=== PATIENT | male | born 1965 | race African-American/Black ===

== ENCOUNTER → 2017-12-11 | Outpatient (CLI) | payer OTHER | END | disposition home or self-care (01) | LOC: KCIC 13:09 | DX: M16.11 Unilateral primary osteoarthritis, right hip (principal); M77.8 Other enthesopathies, not elsewhere classified; M85.651 Other cyst of bone, right thigh; Z91.81 History of falling | CPT/HCPCS: 73502 ==

== ENCOUNTER → 2019-08-01 | Outpatient (CLI) | payer OTHER, MEDICAID ==
[2016-07-25 17:35] VITALS: BP 160/94
--- NOTE | 2019-08-01 12:22 | KCIC ---
EXAM: CHEST 2 VIEWS. HISTORY: Increasing shortness of breath. COMPARISON: 04/10/2015. FINDINGS: Frontal and lateral views of the chest are obtained. A 7 mm nodule in the left base may represent a nipple shadow but this is unclear. There are no confluent infiltrates. There is no pneumothorax or pleural effusion. The heart is not enlarged. IMPRESSION: 1. A 7 mm left basilar nodule may be a nipple shadow. A repeat with nipple markers could further exclude a parenchymal nodule versus follow-up. 2. No confluent infiltrates. Electronically signed by: Luzma Rodriguez MD (08/01/2019 12:18 PM) [facility]
== END | disposition home or self-care (01) ==
LOC: KCIC 11:39
PROVIDERS: ATTEND Family Medicine
DX: R06.02 Shortness of breath (principal)
CPT/HCPCS: 71046

== ENCOUNTER → 2019-08-05 | Outpatient (CLI) | payer OTHER, MEDICAID ==
[2016-07-25 17:35] VITALS: BP 160/94
--- NOTE | 2019-08-05 15:22 | KCIC ---
EXAM: Chest, 2 views. HISTORY: Pulmonary nodule follow-up. Cough. COMPARISON: 08/01/2019 FINDINGS: 2 views of the chest are obtained. There is no infiltrate, pleural effusion or pneumothorax. The heart is normal in size. There is cervical spinal fusion instrumentation, partially included on the [id number]. IMPRESSION: No acute pulmonary finding. The previously demonstrated nodular opacity at the left lung base is not seen. Electronically signed by: Lazara Yepez MD (08/05/2019 3:19 PM) [place] [id number]
== END | disposition home or self-care (01) ==
LOC: KCIC 10:35
PROVIDERS: ATTEND Family Medicine
DX: R91.1 Solitary pulmonary nodule (principal); R06.02 Shortness of breath
CPT/HCPCS: 71046

== ENCOUNTER 2021-01-15 02:24 | Emergency (ER) | payer OTHER, MEDICAID ==
[~2021-01-15] VITALS: Ht 172.7 cm; Wt 82.7 kg
[2021-01-15] MEDS ORDERED: AZIT250T PO (02:59)
[2021-01-15] MEDS ORDERED: BENZ100C PO (02:59)
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
[2021-01-15 03:10] VITALS: BP 124/78
== END 2021-01-15 03:10 | disposition home or self-care (01) ==
LOC: ER 02:24
DX: J02.9 Acute pharyngitis, unspecified (principal); R68.2 Dry mouth, unspecified; R05 Cough; F17.200 Nicotine dependence, unspecified, uncomplicated; F25.9 Schizoaffective disorder, unspecified
CPT/HCPCS: 99284

== ENCOUNTER 2021-10-28 06:39 | Emergency (ER) | payer OTHER, MEDICAID ==
[~2021-10-28] VITALS: Ht 172.7 cm; Wt 79.5 kg
[~2021-10-28 06:39] MED LIST: AZIT250T PO; BENZ100C PO
[2021-10-28 09:00] VITALS: BP 114/83
[2021-10-28] MEDS ORDERED: LIDOCAINE 1% Multi-Dose 20 ML VIAL. INJ ONE (09:15)
[2021-10-28] MEDS ORDERED: HYDROcodone/APAP 5/325MG 1 TAB TABLET PO ONE (09:15)
[2021-10-28] MEDS ORDERED: DIPHTH,PERTUSS(ACELL),TET TOX 0.5 ML DISP.SYRIN. VAX IM ONE (10:00)
[2021-10-28] MEDS ORDERED: CEPH500T PO (11:01)
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
[2021-10-28] MEDS ORDERED: NEOMY/BACITR/POLYMYXIN OINT PACKET. TP ONE (11:15)
== END 2021-10-28 11:22 | disposition home or self-care (01) ==
LOC: ER 06:39
DX: S91.312A Laceration without foreign body, left foot, initial encounter (principal); M19.90 Unspecified osteoarthritis, unspecified site; F17.200 Nicotine dependence, unspecified, uncomplicated; W26.8XXA Contact with other sharp object(s), not elsewhere classified, initial encounter; Y93.89 Activity, other specified; Y92.89 Other specified places as the place of occurrence of the external cause; Y99.8 Other external cause status
CPT/HCPCS: 12002; 90471; 90715; 99284; J3490

== ENCOUNTER 2021-12-11 03:38 | Emergency (ER) | payer OTHER, MEDICAID ==
[~2021-12-11] VITALS: Ht 172.7 cm; Wt 81.8 kg
[~2021-12-11 03:38] MED LIST changes: +CEPH500T PO
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
--- NOTE | 2021-12-11 05:05 | RAD ---
EXAM: XR CHEST 1V 12/11/2021 4:18 AM CLINICAL INDICATION: Overdose COMPARISON: Chest radiograph 08/05/2019 TECHNIQUE: AP view of the chest FINDINGS: The heart is normal in size. Lungs are hypoexpanded. There is mild scattered bilateral int erstitial opacities. No pleural effusion or pneumothorax. IMPRESSION: Hypoexpanded lungs with mild scattered interstitial opacities, possibly atelectasis. Electronically signed by: Tamra Crain MD (12/11/2021 5:03 AM) [facility]
[2021-12-11 05:16] LABS: BASO % 1 % (0-3); EOS # 0.1 x10^3/uL (0.0-0.7); EOS % 3 % (0-3); HEMATOCRIT 43.7 % (39.0-53.0); HEMOGLOBIN 14.1 g/dL (13.0-17.5); LYMPH % 36 % (24-48); MEAN CORPUSCULAR HEMOGLOBIN 28 pg (25-35); MEAN CORPUSCULAR HGB CONC 32 g/dL (31-37); MEAN CORPUSCULAR VOLUME 88 fL (79-100); MONO # 0.5 x10^3/uL (0.0-1.1); MONO % 9 % (0-9); NEUT # 2.8 x10^3/uL (1.8-7.7); NEUT % 52 % (31-73); PLATELET COUNT 181 x10^3/uL (140-400); RED CELL DISTRIBUTION WIDTH 14.7 % (11.5-14.5); WHITE BLOOD COUNT 5.5 x10^3/uL (4.0-11.0)
[2021-12-11 05:25] LABS: CALCIUM 7.6 mg/dL (8.5-10.1); CREATININE 1.1 mg/dL (0.7-1.3); GFR 83.5; POTASSIUM 3.8 mmol/L (3.5-5.1)
[2021-12-11 05:30] LABS: ALBUMIN 3.7 g/dL (3.4-5.0); ALBUMIN/GLOBULIN RATIO 1.2 (1.0-1.7); TOTAL BILIRUBIN 0.2 mg/dL (0.2-1.0); TOTAL PROTEIN 6.9 g/dL (6.4-8.2)
[2021-12-11 05:34] LABS: ACETAMIN < 2 mcg/ml (10-30); ETHANOL < 10 mg/dL (0-10)
--- NOTE | 2021-12-11 05:53 | EKG ---
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
[2021-12-11] MEDS ORDERED: IV NORMAL SALINE 1000ML BAG 1,000 ML IV ONE ×2 (06:00)
[2021-12-11 11:42] VITALS: BP 100/70
[2021-12-11 11:56] LABS: BARBITURATES NEG (NEG); BENZODIAZEPINES POS (NEG); CANNABINOIDS NEG (NEG); COCAINE POS (NEG); METHADONE NEG (NEG); OPIATES NEG (NEG); PHENCYCLIDINE NEG (NEG)
[2021-12-11 11:57] LABS: AMPHETAMINE/METHAMPHETAMINE NEG (NEG)
== END 2021-12-11 12:57 ==
LOC: ER 03:38
DX: T40.2X4A Poisoning by other opioids, undetermined, initial encounter (principal); Z20.822 Contact with and (suspected) exposure to COVID-19; F39 Unspecified mood [affective] disorder; F17.200 Nicotine dependence, unspecified, uncomplicated; F25.9 Schizoaffective disorder, unspecified; Y92.89 Other specified places as the place of occurrence of the external cause
CPT/HCPCS: 36415; 71045; 80053; 80307; 80329; 83735; 83930; 85025; 87426; 93005; 96360; 99285; C9803; G0480; J7030; U0003